=== PATIENT | male | born 1950 | race Caucasian/White ===

== ENCOUNTER 2017-12-20 08:28 | Emergency (ER) | payer OTHER ==
[~2017-12-20 08:28] MED LIST: ATORVASTATIN CA20 M1 PO; METOPROLOL SUCC50 M2 PO
[2017-12-20 08:34] VITALS: BP 141/90
--- NOTE | 2017-12-20 09:00 | ED NECK/BACK PAIN COMPLAINT ---
History of Present Illness General Chief Complaint: Low Back Pain/Injury Stated Complaint: BACK PAIN X3 WEEKS Source: patient, family, old records Exam Limitations: no limitations Vital Signs & Intake/Output Vital Signs & Intake/Output Vital Signs Date Time Temp Pulse Resp B/P B/P Pulse O2 O2 Flow FiO2 Mean Ox Delivery Rate 12/20 0834 98.0 68 20 141/90 98 Allergies Coded Allergies: iodine (Severe, BLISTERS 02/26/16) Reconcile Medications Atorvastatin Calcium 20 MG TABLET 1 TAB PO DAILY CHOLESTEROL (Reported) Cyclobenzaprine HCl 5 MG TABLET 1 TAB PO Q8P PRN PAIN Metoprolol Succinate 50 MG TAB.ER.24H 1 TAB PO DAILY HTN (Reported) Triage Note: PER PT BEEN SEEN BY DR DUGGAN FOR BACK PAIN X 3 WEEKS CALLED YESTERDAY BUT HE WAS NOT IN AND COVERING DR WOULD NOT PRESCRIBE MORE MEDS, PT UNABLE TO SLEEP D/T PAIN Triage Nurses Notes Reviewed? yes HPI: Patient has been having pain in his right shoulder that radiating into his neck and down his right arm for the past 3 weeks. Patient has been seen by his primary care physician and is due to start physical therapy on Monday. Patient was working in the yard this past Monday pulling a lot of weeds and shrubs. Since then he's been having pain in his mid to low back. The pain is aching in nature. The pain occasionally radiates around to his left anterior thigh. There is no weakness or numbness. There is no incontinence of bowel or bladder. He rates the pain at a 6 out of 10. The pain increased with movement. Past History Travel History Traveled to [place] past 21 day No Medical History Any Pertinent Medical History? see below for history Neurological: NONE EENT: NONE Cardiovascular: hypertension, hyperlipidemia Respiratory: NONE Gastrointestinal: NONE Hepatic: NONE Renal: NONE Musculoskeletal: NONE Psychiatric: NONE Endocrine: NONE Blood Disorders: NONE Cancer(s): NONE COVER OPERATOR/Reproductive: NONE Tetanus Vaccine: 02/14/16 Surgical History Surgical History: non-contributory Psychosocial History What is your primary language Bel[place]ian Tobacco Use: Never used ETOH Use: denies use Illicit Drug Use: denies illicit drug use Family History Hx Contributory? No Review of Systems Review of Systems Constitutional: Reports: no symptoms. Eyes: Reports: no symptoms. Ears, Nose, Throat, Mouth: Reports: no symptoms. Musculoskeletal: Reports: see HPI, back pain. Neurological/Psychological: Reports: no symptoms. Physical Exam Physical Exam General Appearance: well developed/nourished, alert, awake, moderate distress Eyes: Bilateral: PERRL, EOMI. Neck: normal inspection, supple, full range of motion Respiratory: normal breath sounds, chest non-tender, no respiratory distress, lungs clear Cardiovascular: regular rate/rhythm, normal peripheral pulses Gastrointestinal: normal bowel sounds, soft, non-tender Back: normal inspection, normal range of motion Straight Leg Raising: Right: Negative. Left: Negative. Neurologic/Psych: no motor/sensory deficits, awake, alert, oriented x 3, normal gait, normal mood/affect Core Measures CVA/TIA Diagnosis: No Progress Differential Diagnosis: herniated disc, myofascial strain, sciatica Plan of Care: Current Medications Sig/Eva Start time Last Medication Dose Stop Time Status Admin Cyclobenzaprine HCl 10 MG ONCE ONE 12/20 929 UNVr (Flexeril 10MG Tab) 12/20 930 Ketorolac 30 MG ONCE ONE 12/20 929 UNVr Tromethamine 12/20 930 (Toradol) Departure Departure Disposition: HOME OR SELF CARE Condition: Stable Clinical Impression Primary Impression: Back pain Referrals: Duggan Miguel [facility] (PCP/Family) Additional Instructions: Use moist heat. Follow up with your primary care physician as well as physical therapy. Take the Flexeril as needed for pain and spasm. The Flexeril is sedating so do not drive after taking. Return if symptoms worsen or for any concerns. Departure Forms: Customer Survey General Discharge Information Prescriptions: Current Visit Scripts Cyclobenzaprine HCl 1 TAB PO Q8P PRN PAIN #30 TAB
[2017-12-20] MEDS ORDERED: CYCLOBENZAPRINE5 M2 PO (09:29)
== END 2017-12-20 10:11 ==
LOC: ERH 08:28
DX: M54.9 Dorsalgia, unspecified (principal)
CPT/HCPCS: 96372; J1885